=== PATIENT | female | born 1950 | race Caucasian/White ===

== ENCOUNTER → 2018-06-19 | Outpatient (CLI) | payer MEDICARE, OTHER ==
[~2018-06-19] MED LIST: HYDR-653 PO; LEVO75TA68 PO; METF-450 PO; PROM-110 PO; VALS-25 PO
--- NOTE | 2018-06-19 13:28 | RADIOLOGY IMAGING REPORT ---
FACILITY: [facility] [place] PATIENT NAME: Shawna Pressley : 1950 MR: [id number] V: [id number] EXAM DATE: ORDERING PHYSICIAN: JIHAN TAVAREZ TECHNOLOGIST: Location: [facility] [place] Patient: Shawna Pressley : 1950 Visit/Account:[id number] Date of Sevice: 06/19/2018 Exam type: US VENOUS LOWER EXT RT History: Right knee pain and swelling Comparison: None. Findings: Right lower extremity veins were imaged including the right common femoral vein greater saphenous vei n superficial femoral vein popliteal vein anterior tibial vein peroneal vein and posterior tibial vei ns revealing no evidence of intraluminal thrombi. The veins were compressible and demonstrated augme ntation IMPRESSION: 1. No sonographic evidence of DVT involving the right lower extremity veins Results were called to JIHAN TAVAREZ 's nurse Hawa at 06/19/2018 1:22 PM. Report Dictated By: Brie Storey MD at 06/19/2018 1:11 PM Report E-Signed By: Brie Storey MD at 06/19/2018 1:23 PM WSN:[id number]
== END ==
LOC: US 12:09
PROVIDERS: ATTEND Orthopaedic Surgery
DX: M25.561 Pain in right knee (principal); M79.89 Other specified soft tissue disorders

== ENCOUNTER → 2018-07-14 | Outpatient (CLI) | payer MEDICARE, OTHER ==
--- NOTE | 2018-07-15 13:38 | RADIOLOGY IMAGING REPORT ---
[place] [facility] [place] NAME: VALERIE CHRISTIANSON : [id number] MR: [id number] V: [id number] EXAM DATE: [id number] ORDERING PHYSICIAN: ОЛЕГ FERRO TECHNOLOGIST: Loida Pagan PROCEDURE:BILATERAL DIGITAL SCREENING MAMMOGRAM WITH CAD ASSISTED INTERPRETATION & 3D TOMOSYNTHESIS COMPARISON:Prior mammogram 06/13/16. INDICATIONS:screening FINDINGS: The breasts are almost entirely fatty. The parenchymal pattern has remained stable allowing for difference in mammographic technique & patient positioning. DIAGNOSTIC CATEGORY 1--NEGATIVE. RECOMMENDATIONS: ROUTINE MAMMOGRAM AND CLINICAL EVALUATION. IMPRESSION: BIRADS 1: Negative. No significant abnormality is seen. Dictated by: Brie Storey M.D. on 07/14/2018 at 16:44 Transcribed by: MELINA on 07/15/2018 at 8:33 Approved by: Brie Storey M.D. on 07/15/2018 at 13:37 [facility]
== END ==
LOC: MAMO 01:48
PROVIDERS: ATTEND Physician Assistant
DX: Z12.31 Encounter for screening mammogram for malignant neoplasm of breast (principal)
CPT/HCPCS: 77063; 77067